=== PATIENT | male | born 1955 | race Caucasian/White ===

== ENCOUNTER 2021-11-07 13:50 | Emergency (ER) | payer OTHER, SELFPAY ==
[2021-11-07] VITALS (17 sets, daily range): BP systolic 99–169; BP diastolic 73–97; PULSE 80–101; RESP 15–28; TEMP 36.7; O2SAT 98
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
--- NOTE | 2021-11-07 14:15 | RT.EKG_ITS ---
APPROVED REPORT Exam: Resting ECG Reason for Exam: dizziness Patient Location: E HR:83 bpm ECG Measurements Heart Rate 83 AXIS NH 210 P 43 QRSd 104 QRS 7 QT 394 T 37 QTc 463 Conclusion Sinus rhythm...normal P axis, V-rate 60- 99 Inferior infarct, old...Q >35mS, II III aVF. Sinus. Q waves inferior leads. No STEMI. I have reviewed and interpreted ECG and agree with software generated interpretation.
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
[2021-11-07 14:25] LABS: Abs Immature Grans 0.09 10^3/uL (0.0-0.06); Absolute Basophil Count 0.07 10^3/uL (0.0-0.2); Absolute Eosinophil Count 0.14 10^3/uL (0.0-0.7); Absolute Lymphocyte Count 1.93 10^3/uL (1.2-3.4); Absolute Monocyte Count 0.51 10^3/uL (0.1-0.8); Absolute Neutrophil Count 5.84 10^3/uL (1.2-6.7); Basophils % 0.8; Eosinophils % 1.6; HCT 42.8 % (40.0-50.0); HGB 14.8 g/dL (13.5-17.5); Lymphocytes % 22.5; MCH 31.8 pg (27.0-33.0); MCHC 34.6 % (32.0-36.0); MCV 92 fL (80-95); MPV 11.7 fL (8.0-11.0); Monocytes % 5.9; Neutrophils % 68.2; Platelet Count 170 10^3/uL (130-400); RBC 4.66 10^6/uL (4.36-5.78); RDW 12.6 % (11.8-14.1); RDW-SD 41.8 fL; WBC 8.58 10^3/uL (4.4-10.8)
[2021-11-07] MEDS: ACETAMINOPHEN 1,000 MG/100 ML BTL 400 MG IVPB (14:25)
[2021-11-07] MEDS: Normal Saline 250 ML 500 ML IV (14:25)
[2021-11-07] MEDS: Omnipaque 350 MG/ML 100 ML BTL 85 ML IJ (14:45)
--- NOTE | 2021-11-07 14:49 | DI.CT_ITS ---
Exam(s) CT BRAIN NECK CTA EXAM: CT BRAIN NECK CTA CLINICAL HISTORY: headache, vision change, r/o cva. TECHNIQUE: Imaging Protocol: Axial CT angiography was performed with multi-slice acquisition and mu lti-planar and/or 3D reconstructions. CONTRAST MATERIAL: Intravenous: Omnipaque 350 Contrast volume:structured data in ml COMPARISON: No exams were available for comparison FINDINGS: CT angiography of the cervical cranial region was performed according to the usual protocol with intr avenous infusion of 85 cc of Omnipaque 350.. The patient has reportedly had prior known pituitary mass and is status post chemotherapy. The pitui tary does appear enlarged. Initial noncontrast scanning of the head is otherwise unremarkable. Visualized lung apices are clear. Visualized portions of thoracic aorta and pulmonary arterial circul ation are unremarkable. There is no evidence of a cervical mass or adenopathy. The tracheal laryngeal structures appear intact. The common, internal, and external carotid arteries are within normal limits in the cervical region w ith no evidence of aneurysm, stenosis, or dissection. The vertebral arteries are unremarkable in appearance in the cervical region with no evidence of aneu rysm, stenosis, or dissection. Intracranial portions of the internal carotid arteries appear normal with no evidence of aneurysm, st enosis, or dissection. Intracranial vertebral arteries and basilar artery appear normal with no evidence of aneurysm, stenos is or dissection. No aneurysm identified in the region of the [id number]. The anterior, middle, and posterior cer ebral arteries and major branches appear intact with no evidence of aneurysm, stenosis, or dissection . No enhancing brain lesion identified on 5 minutes delayed images.. IMPRESSION: Negative CT angiography of the cervical cranial region. RADIATION DOSE DELIVERED: 2,185.72mGy.cmTotal DLP 2,185.72mGy.cm Total DLP !Error CTDIvol DATA REPOSITORY: All CT scans at this facility are submitted to the National Radiology Data Registry (NRDR) Dose Index Registry (DIR) with the [employer] [place] [employer] ([employer]). RADIATION OPTIMIZATION: All CT scans at this facility use at least one of these dose optimization te chniques: automated exposure control; mA and/or kV adjustment per patient size (includes targeted exa ms where dose is matched to clinical indication); or iterative reconstruction.
[2021-11-07 16:46] LABS: ALT 48 U/L (16-63); AST 22 U/L (15-37); Albumin 2.9 g/dL (3.4-5.0); Alkaline Phosphatase 71 U/L (46-116); Anion Gap 7.7 mmol/L (3-11); BUN 17 mg/dL (7-18); Bilirubin, Total 0.2 mg/dL (0.2-1.0); CO2 25.3 mmol/L (21.0-32.0); Calcium 7.5 mg/dL (8.5-10.1); Chloride 107 mmol/L (98-107); Estimated GFR 83.52 (mL/min/1.73m2); Glucose 179 mg/dL (74-106); Magnesium 1.8 mg/dL (1.8-2.4); Sodium 140 mmol/L (136-145); Total Protein 5.8 g/dL (6.4-8.2); Troponin I < 50 ng/L (<or=60)
[2021-11-07] MEDS: Potassium Chloride 20 MEQ TABCR 40 MEQ PO (17:09)
[2021-11-07] MEDS: Ketorolac 30 MG/ML VIAL IVP (17:53)
== END 2021-11-07 17:55 | disposition home or self-care (01) ==
PROVIDERS: Emergency Provider Physician Assistant
DX: R42 Dizziness and giddiness (principal); H53.9 Unspecified visual disturbance; R07.89 Other chest pain; M25.561 Pain in right knee; I10 Essential (primary) hypertension; E11.9 Type 2 diabetes mellitus without complications
CPT/HCPCS: 36415; 70496; 70498; 73562; 80053; 93005; 96374; 96375; 99285; 71046; 71100; 83735; 84484; 85025; 93010; J0131; J1885; J3490